=== PATIENT | male | born 1985 | race Hispanic/Latino ===

== ENCOUNTER 2018-08-05 07:09 | Emergency (ER) | payer SELFPAY ==
[~2018-08-05] VITALS: Ht 165.1 cm; Wt 99.0 kg
[2018-08-05] MEDS ORDERED: CYCLOBENZAPR5 MG PO (08:20)
[2018-08-05 08:22] VITALS: BP 137/76
== END 2018-08-05 08:30 | disposition home or self-care (01) | DRG 552 ==
LOC: ED 07:09
DX: M43.6 Torticollis (principal)

== ENCOUNTER 2022-01-12 21:38 | Emergency (ER) | payer SELFPAY ==
[~2022-01-12] VITALS: Ht 165.1 cm; Wt 90.0 kg
[~2022-01-12 21:38] MED LIST: CYCLOBENZAPR5 MG PO
[2022-01-12] MEDS ORDERED: IVERMECTIN3 MG PO (22:10)
[2022-01-12 22:26] VITALS: BP 111/80
== END 2022-01-12 22:34 | disposition home or self-care (01) | DRG 373 ==
LOC: ED 21:38
DX: B76.9 Hookworm disease, unspecified (principal)